=== PATIENT | male | born 1980 | race Caucasian/White ===

== ENCOUNTER 2017-02-20 21:14 | Emergency (ER) | payer OTHER ==
[~2017-02-20] VITALS: Ht 188 cm; Wt 72.7 kg
[~2017-02-20 21:14] MED LIST: NAPROSYN500 MG PO
[2017-02-20 21:31] VITALS: BP 148/92
[2017-02-21] MEDS ORDERED: METHADONE10 MG PO (01:34)
== END 2017-02-20 21:44 | disposition left against medical advice (07) ==
LOC: EME 21:14
DX: T40.1X1A Poisoning by heroin, accidental (unintentional), initial encounter (principal); Z53.21 Procedure and treatment not carried out due to patient leaving prior to being seen by health care provider
CPT/HCPCS: J2310

== ENCOUNTER 2017-02-20 23:52 | Inpatient (IN) | payer OTHER ==
[~2017-02-20] VITALS: Ht 182.9 cm; Wt 64.1 kg
[2017-02-21 00:48] LABS: CHLORIDE 105 mEq/L (99-109); POTASSIUM 4.2 mEq/L (3.7-5.4)
[2017-02-21 00:49] LABS: SODIUM 141 mEq/L (136-147)
[2017-02-21 00:50] LABS: HEMATOCRIT 42.2 % (38.0-50.0); MCH 28.9 PG (29.0-34.0); MCV 90.4 FL (86-99); MEAN PLAT.VOLUME 10.1 uM^3 (9.0-12.4); PLATELET COUNT 348 K/uL (156-360); RBC DIS.WIDTH-CV 12.6 % (11.8-14.6); RBC DIS.WIDTH-SD 41.6 % (39-53); RED BLOOD COUNT 4.67 M/uL (4.00-5.50); WHITE BLOOD COUNT 13.1 K/uL (4.1-10.2)
[2017-02-21 00:51] LABS: GLUCOSE 95 mg/dL (70-99)
[2017-02-21 00:52] LABS: ANION GAP 9 MEQ/L (2-14)
[2017-02-21 00:53] LABS: TOTAL BILIRUBIN 0.3 mg/dL (0.0-1.0)
[2017-02-21 00:54] LABS: SERUM ETHYL ALCOHOL < 10 mg/dL
[2017-02-21 00:55] LABS: ALKALINE PHOSPHATASE 75 IU/L (3-129); GFR ESTIMATE (CALCULATED) > 59 mL/min/
[2017-02-21 00:57] LABS: UREA NITROGEN (BUN) 11 mg/dL (9-23)
[2017-02-21 00:58] LABS: SALICYLATE < 5.0 MG/DL (15-30)
[2017-02-21] MEDS ORDERED: METHADONE10 MG PO (01:34)
[2017-02-21 03:05] VITALS: BP 118/63
[2017-02-21 03:07] LABS: ADD MIUA? NO; BILIRUBIN NEGATIVE; BLOOD NEGATIVE; COLOR YELLOW ((YELLOW)); GLUCOSE (STRIP) NEGATIVE; KETONES NEGATIVE; LEUKOCYTES NEGATIVE; NITRITE NEGATIVE; PROTEIN (STRIP) NEGATIVE; SPECIFIC GRAVITY 1.024 (1.000-1.030); UCUL ADDED? NO; UROBILINOGEN 0.2 MG/DL (0.2-1.0)
[2017-02-21 03:15] LABS: AMPHETAMINE NEGATIVE (500 ng/mL); BARBITURATES NEGATIVE (200 ng/mL); BENZODIAZEPINES NEGATIVE (150 ng/mL); COCAINE PRESUMPTIVE POSITIVE (150 ng/mL); INTERNAL CONTROLS VALID? YES; METHADONE PRESUMPTIVE POSITIVE (200 ng/mL); METHAMPHETAMINE NEGATIVE (500 ng/mL); OPIATES (MORPHINE) PRESUMPTIVE POSITIVE (100 ng/mL); OXYCODONE NEGATIVE (100 ng/mL); PHENCYCLIDINE NEGATIVE (25 ng/mL); PROPOXYPHENE NEGATIVE (300 ng/mL); THC CANNABINOIDS NEGATIVE (50 ng/mL); TRICYCLIC ANTIDEPRESSANTS NEGATIVE (300 ng/mL)
[2017-02-21 03:16] LABS: ADD MEDTOX COMMENT Y
[2017-02-21 03:38] VITALS: BP 118/63
[2017-02-21 07:29] VITALS: BP 106/55
[2017-02-21 15:36] VITALS: BP 111/63
[2017-02-22 07:18] VITALS: BP 107/65
[2017-02-22 15:28] VITALS: BP 111/63
[2017-02-23 07:44] VITALS: BP 100/51
[2017-02-23 15:16] VITALS: BP 103/53
[2017-02-24 07:51] VITALS: BP 105/59
[2017-02-24 15:37] VITALS: BP 137/58
[2017-02-25 08:28] VITALS: BP 104/65
== END 2017-02-25 10:00 | DRG 882 ==
LOC: EME → EDBD 23:52 → EDOF 02-21 01:26 → 1WEST 02-21 01:26
PROVIDERS: Emergency Medicine
DX: F43.24 Adjustment disorder with disturbance of conduct (principal); F33.2 Major depressive disorder, recurrent severe without psychotic features; R45.850 Homicidal ideations; F19.14 Other psychoactive substance abuse with psychoactive substance-induced mood disorder; F11.10 Opioid abuse, uncomplicated; R45.851 Suicidal ideations; Z59.0 Homelessness; F14.10 Cocaine abuse, uncomplicated
CPT/HCPCS: 80053; 81003; 84999; 85027; 90837; 97150 GO; 97165 GO; 99281; 99285; G0480; Q0177

== ENCOUNTER 2018-05-08 21:18 | Emergency (ER) | payer OTHER ==
[~2018-05-08] VITALS: Ht 182.9 cm; Wt 80.1 kg
[~2018-05-08 21:18] MED LIST changes: +METHADONE10 MG PO
[2018-05-08 21:42] LABS: HEMATOCRIT 41.4 % (38.0-50.0); HEMOGLOBIN 14.6 G/DL (12.5-16.6); MCH 31.4 PG (29.0-34.0); MCHC 35.3 G/DL (30.0-36.0); PLATELET COUNT 250 K/uL (156-360); RBC DIS.WIDTH-CV 12.4 % (11.8-14.6); RBC DIS.WIDTH-SD 40.4 % (39-53); RED BLOOD COUNT 4.65 M/uL (4.00-5.50); WHITE BLOOD COUNT 15.2 K/uL (4.1-10.2)
[2018-05-08 21:53] LABS: CHLORIDE 109 mEq/L (99-109); POTASSIUM 3.6 mEq/L (3.7-5.4); SODIUM 144 mEq/L (136-147)
[2018-05-08 21:54] LABS: GLUCOSE 82 mg/dL (70-99)
[2018-05-08 21:58] LABS: CREATININE 1.1 mg/dL (0.6-1.3); GFR ESTIMATE (CALCULATED) > 59 mL/min/ (58.99-99999)
[2018-05-08 21:59] LABS: UREA NITROGEN (BUN) 13 mg/dL (9-23)
[2018-05-08 22:06] LABS: TROP-I INTERPRETATION NEGATIVE; TROPONIN-I < 0.01 ng/mL (0.0-0.30)
[2018-05-08 22:37] LABS: D-DIMER ELISA < 150.00 ng/mLDDU (<230)
[2018-05-09 00:34] LABS: TROP-I INTERPRETATION NEGATIVE; TROPONIN-I < 0.01 ng/mL (0.0-0.30)
[2018-05-09 02:05] VITALS: BP 121/66
== END 2018-05-09 02:06 | disposition home or self-care (01) ==
LOC: EME 21:18
PROVIDERS: Emergency Medicine
DX: R07.89 Other chest pain (principal); F17.200 Nicotine dependence, unspecified, uncomplicated
CPT/HCPCS: 71046; 80048; 84484; 85027; 85379; 93005; 99281; 99285